=== PATIENT | female | born 1965 | race Caucasian/White ===

== ENCOUNTER 2020-10-01 14:28 | Emergency (ER) | payer MEDICAID ==
[~2020-10-01] VITALS: Ht 157.5 cm; Wt 160.0 kg
[2020-10-01] MEDS ORDERED: normal saline 1000ML IV soln IVB ONE (16:20)
[2020-10-01] MEDS ORDERED: proCHLORperazine 10 MG/2 ml inj IV ONE (16:20)
[2020-10-01] MEDS ORDERED: diphenhydrAMINE 50 mg/ml inj IV ONE (16:20)
[2020-10-01] MEDS ORDERED: proparacaine 0.5% ophthalmic drops 15ml LEFTEYE ONE (16:20)
[2020-10-01] MEDS ORDERED: timolol 0.5% ophthalmic solution 5ml bottle EACHEYE ONE (18:07)
[2020-10-01] MEDS ORDERED: latanoprost 0.005% 2.5ml ophthalmic drops EACHEYE ONE (18:10)
[2020-10-01] MEDS: latanoprost 0.005% 2.5ml ophthalmic drops EACHEYE SCH ×2 (18:10→19:12)
[2020-10-01] MEDS ORDERED: acetaZOLAMIDE IV 500mg inj IV ONE (18:10)
[2020-10-01] MEDS ORDERED: brimonidine 0.2% 5 ML ophthalmic drops EACHEYE SCH (18:10)
--- NOTE | 2020-10-01 18:24 | NUR ---
waiting for medications from pharmacy.
[2020-10-01] MEDS ORDERED: ketorolac tromethamine 15mg/ml inj. IV ONE (18:50)
[2020-10-01] MEDS: pilocarpine 2% ophthalmic drops 15ml EACHEYE SCH ×2 (20:23→20:30)
[2020-10-01] MEDS ORDERED: acetaZOLAMIDE 250mg tablet PO ONE (21:25)
[2020-10-01] MEDS ORDERED: MANNITOL 12.5 GM/50 ML IV ONE (22:05)
--- NOTE | 2020-10-01 22:16 | NUR ---
SPOKE TO PHARMACY. THEY ARE COMPOUNDING THE IV MEDICATION AND MAY TAKE ABOUT 20 MIN
[2020-10-01] MEDS ORDERED: DEXTROSE 5% IV ONE (22:25)
[2020-10-01] MEDS ORDERED: MANNITOL IV ONE (22:25)
[2020-10-01] MEDS ORDERED: WATER IV ONE (22:25)
[2020-10-02 04:28] VITALS: BP 126/84
== END 2020-10-02 04:30 | disposition home or self-care (01) ==
LOC: ER 14:29
DX: H40.212 Acute angle-closure glaucoma, left eye (principal); G43.909 Migraine, unspecified, not intractable, without status migrainosus
CPT/HCPCS: 96361; 96365; 96375; 99285; J0780; J1120; J1200; J1885; J2150; J7030; J7060

== ENCOUNTER 2021-01-16 12:17 | Emergency (ER) | payer MEDICAID ==
[~2021-01-16] VITALS: Ht 160 cm; Wt 145.4 kg
[2021-01-16 12:24] VITALS: BP 165/94
[2021-01-16] MEDS ORDERED: ketorolac trometh inj. 60 MG/2 ML VIAL IM ONE (13:10)
[2021-01-16] MEDS ORDERED: HYDROcodone/acetaminophen 10/325mg tab PO ONE (13:10)
[2021-01-16] MEDS ORDERED: HYDR-3972 PO (13:20)
== END 2021-01-16 13:36 | disposition home or self-care (01) ==
LOC: ER 12:18
DX: S89.91XA Unspecified injury of right lower leg, initial encounter (principal); M25.561 Pain in right knee; E78.00 Pure hypercholesterolemia, unspecified; I10 Essential (primary) hypertension; E11.9 Type 2 diabetes mellitus without complications; E03.9 Hypothyroidism, unspecified; Z98.890 Other specified postprocedural states; Z79.899 Other long term (current) drug therapy; W19.XXXA Unspecified fall, initial encounter; Y93.89 Activity, other specified; Y92.89 Other specified places as the place of occurrence of the external cause; Y99.8 Other external cause status
CPT/HCPCS: 73564; 96372; 99283; J1885

== ENCOUNTER 2021-03-03 21:18 | Emergency (ER) | payer MEDICAID ==
[~2021-03-03] VITALS: Ht 162.6 cm; Wt 143.3 kg
--- NOTE | 2021-03-03 21:42 | NUR ---
MARTHA Copeland at bedside.
[2021-03-03] MEDS ORDERED: CefTRIAXone/D5W-Rocephin 1gm 50 ML IV ONE (21:50)
[2021-03-03] MEDS ORDERED: vancomycin/NS 1 GM ADD-VANTAGE 250 ML IV ONE (22:05)
[2021-03-03] MEDS ORDERED: normal saline 1000ML IV soln IVB ONE (22:05)
[2021-03-03 22:06] LABS: BASOPHILS % (AUTO) 0.4 % (0-1); EOSINOPHILS # (AUTO) 0.2 X10'3 (0-0.9); EOSINOPHILS % (AUTO) 2.2 % (0-6); HEMATOCRIT 37.1 % (35.0-45.0); HEMOGLOBIN 12.5 g/dl (12.0-16.0); LYMPHOCYTES # (AUTO) 1.8 X10'3 (1.1-4.8); LYMPHOCYTES % (AUTO) 18.2 % (21-51); MEAN CORPUSCULAR HEMOGLOBIN 31.4 PG (27.0-31.0); MEAN CORPUSCULAR HGB CONC 33.8 g/dL (33.0-36.5); MEAN CORPUSCULAR VOLUME 92.9 FL (78-98); MONOCYTES % (AUTO) 9.6 % (2-12); NEUTROPHILS # (AUTO) 6.9 X10'3 (1.8-7.7); NEUTROPHILS % (AUTO) 69.6 % (42-75); PLATELET COUNT 259 X10'3 (140-440); RED BLOOD COUNT 3.99 X10'6 (4.20-5.60); RED CELL DISTRIBUTION WIDTH 13.4 % (11.5-14.5)
[2021-03-03 22:14] LABS: ALANINE AMINOTRANSFERASE 21 U/L (12-78); ALBUMIN 3.1 G/DL (3.4-5.0); ALBUMIN/GLOBULIN RATIO 0.8 (1.1-1.5); ALKALINE PHOSPHATASE 104 IU/L (46-116); ANION GAP 11 (8-16); ASPARTATE AMINO TRANSFERASE 17 U/L (10-37); BILIRUBIN,TOTAL 0.4 MG/DL (0.1-1.0); BLOOD UREA NITROGEN 12 MG/DL (7-18); BUN/CREATININE RATIO 10.7 (6.6-38.0); CALCIUM 8.8 MG/DL (8.5-10.1); CHLORIDE 101 MMOL/L (99-107); CREATININE 1.12 MG/DL (0.40-0.90); GLUCOSE 188 MG/DL (70-104); POTASSIUM 3.9 MMOL/L (3.5-5.1); SODIUM 136 MMOL/L (135-145); TOTAL PROTEIN 7.2 G/DL (6.4-8.2); eGFR 50 ML/MIN
[2021-03-03] MEDS ORDERED: SULF1TAB49 PO (22:19)
[2021-03-03] MEDS ORDERED: CEPH250T PO (22:19)
[2021-03-03 22:43] VITALS: BP 126/70
== END 2021-03-04 | disposition home or self-care (01) ==
LOC: ER 21:19
DX: L03.115 Cellulitis of right lower limb (principal); E78.00 Pure hypercholesterolemia, unspecified; I10 Essential (primary) hypertension; E11.9 Type 2 diabetes mellitus without complications; E03.9 Hypothyroidism, unspecified
CPT/HCPCS: 36415; 80053; 85025; 96365; 99284; J3370; J7030

== ENCOUNTER 2021-07-27 12:16 | Emergency (ER) | payer MEDICAID ==
[~2021-07-27] VITALS: Ht 160 cm; Wt 136.4 kg
[2021-07-27] MEDS ORDERED: LIDOcaine 1% W/epiNEPHrine 1:200,000 10ml vial IJ ONE (12:20)
[2021-07-27 12:26] VITALS: BP 189/77
[2021-07-27] MEDS ORDERED: LIDOcaine/epinephrine/tetracaine TOPICAL sol 3 ML syringe TOP ONE (12:40)
[2021-07-27] MEDS ORDERED: CEPH-585 PO (13:06)
[2021-07-27] MEDS ORDERED: HYDR-3972 PO (14:31)
== END 2021-07-27 14:53 | disposition home or self-care (01) ==
LOC: ER 12:16
DX: S01.511A Laceration without foreign body of lip, initial encounter (principal); E78.00 Pure hypercholesterolemia, unspecified; I10 Essential (primary) hypertension; E11.9 Type 2 diabetes mellitus without complications; E03.9 Hypothyroidism, unspecified; Z98.890 Other specified postprocedural states; Z79.2 Long term (current) use of antibiotics; W01.0XXA Fall on same level from slipping, tripping and stumbling without subsequent striking against object, initial encounter; Y93.89 Activity, other specified; Y92.89 Other specified places as the place of occurrence of the external cause; Y99.8 Other external cause status
CPT/HCPCS: 40650; 99283

== ENCOUNTER 2022-12-26 15:52 | Emergency (ER) | payer MEDICAID ==
[~2022-12-26] VITALS: Ht 157.5 cm; Wt 145.4 kg
[2022-12-26 16:03] VITALS: BP 124/80
[2022-12-26] MEDS ORDERED: ondansetron/PF 4mg/2ml inj IV ONE (16:10)
[2022-12-26] MEDS ORDERED: pantoprazole 40 MG vial IV ONE (16:10)
[2022-12-26] MEDS ORDERED: ketorolac trometh. 30mg/ml inj. IV ONE (16:10)
[2022-12-26] MEDS ORDERED: normal saline 1000ML IV soln IVB ONE (16:10)
[2022-12-26 16:38] LABS: BASOPHILS # (AUTO) 0.1 X10'3 (0-0.2); BASOPHILS % (AUTO) 0.3 % (0-1); EOSINOPHILS # (AUTO) 0.5 X10'3 (0-0.9); EOSINOPHILS % (AUTO) 2.4 % (0-6); HEMATOCRIT 41.2 % (35.0-45.0); HEMOGLOBIN 13.9 g/dl (12.0-16.0); LYMPHOCYTES # (AUTO) 1.5 X10'3 (1.1-4.8); LYMPHOCYTES % (AUTO) 6.7 % (21-51); MEAN CORPUSCULAR HEMOGLOBIN 30.9 PG (27.0-31.0); MEAN CORPUSCULAR HGB CONC 33.8 g/dL (33.0-36.5); MEAN CORPUSCULAR VOLUME 91.6 FL (78-98); MEAN PLATELET VOLUME 8.4 FL (7.4-10.4); MONOCYTES # (AUTO) 1.4 X10'3 (0-0.9); MONOCYTES % (AUTO) 6.2 % (2-12); NEUTROPHILS % (AUTO) 84.4 % (42-75); PLATELET COUNT 353 X10'3 (140-440); RED CELL DISTRIBUTION WIDTH 13.9 % (11.5-14.5); WHITE BLOOD COUNT 22.5 X10'3 (4.5-11.0)
[2022-12-26 17:03] LABS: ALANINE AMINOTRANSFERASE 233 U/L (12-78); ALBUMIN 3.3 G/DL (3.4-5.0); ALBUMIN/GLOBULIN RATIO 0.8 (1.1-1.5); ALKALINE PHOSPHATASE 205 IU/L (46-116); ANION GAP 11 (8-16); ASPARTATE AMINO TRANSFERASE 71 U/L (10-37); BLOOD UREA NITROGEN 11 MG/DL (7-18); BUN/CREATININE RATIO 11.2 (10.0-20.0); CALCIUM 8.4 MG/DL (8.5-10.1); CHLORIDE 98 MMOL/L (99-107); CREATININE 0.98 MG/DL (0.40-0.90); GLUCOSE 190 MG/DL (70-104); LIPASE 335 U/L (73-393); MAGNESIUM 1.4 MG/DL (1.5-2.4); SODIUM 136 MMOL/L (135-145); TOTAL PROTEIN 7.5 G/DL (6.4-8.2); eGFR 58 ML/MIN
[2022-12-26 17:08] LABS: POTASSIUM 2.9 MMOL/L (3.5-5.1)
[2022-12-26] MEDS ORDERED: POTASSIUM BICARB 20meq eff tab 20 MEQ TABLET.EFF PO STA (17:28)
[2022-12-26] MEDS ORDERED: magnesium 2GM in 50ml NS 50 ML IV ONE (17:30)
[2022-12-26] MEDS ORDERED: Potassium Cl inj 20 MEQ in normal saline 250ml IV soln 250 ML IV ONE (17:30)
[2022-12-26 20:12] LABS: URINE HCG NEGATIVE (NEG)
[2022-12-26 20:13] LABS: CLARITY,URINE TURBID (Clear); GLUCOSE, URINE NEGATIVE (Neg); KETONES,URINE TRACE mg/dl (Neg); LEUKOCYTE ESTERASE ,URINE NEGATIVE (Neg); NITRITES, URINE POSITIVE (Neg); OCCULT BLOOD,URINE NEGATIVE (Neg); PROTEIN,URINE 100 mg/dl (Neg)
[2022-12-26 20:18] LABS: UA COLLECTION TYPE CLN CATCH MIDSTREAM
[2022-12-26 20:20] LABS: COLOR,URINE DARK YELLOW (Yellow); SQUAMOUS EPITHELIAL CELL,UR MANY /LPF (FEW)
[2022-12-26 20:21] LABS: BACTERIA,URINE 3+ /HPF (Neg)
[2022-12-26] MEDS ORDERED: CefTRIAXone/D5W-Rocephin 1gm 50 ML IV ONE (20:40)
[2022-12-26] MEDS ORDERED: normal saline 1000ml 1,000 ML IV ONE (21:05)
[2022-12-26] MEDS ORDERED: pantoprazole 40MG/NS 100ML BAG 100 ML IV ONE (22:15)
[2022-12-26] MEDS ORDERED: AMOX-117 PO (23:23)
[2022-12-26] MEDS ORDERED: ONDA4TAB12 PO (23:23)
[2022-12-26] MEDS ORDERED: HYDR-3965 PO (23:23)
[2022-12-26] MEDS ORDERED: ondansetron 4mg rapidly disintigrating tab PO ONE (23:25)
[2022-12-26] MEDS ORDERED: HYDROcodone/acetaminophen 5mg/325mg tablet PO ONE (23:25)
== END 2022-12-27 01:26 | disposition home or self-care (01) ==
LOC: ER 15:52
DX: N10 Acute pyelonephritis (principal); I10 Essential (primary) hypertension; E11.9 Type 2 diabetes mellitus without complications; E78.00 Pure hypercholesterolemia, unspecified; E03.9 Hypothyroidism, unspecified
CPT/HCPCS: 36415; 80053; 81001; 81025; 83605; 83690; 83735; 84145; 85025; 87040; 96365; 96366; 96368; 96375; 99284; C9113; J0696; J1885; J2405; J3475; J3480; J7030; J7050

== ENCOUNTER 2024-04-30 13:33 | Inpatient (IN) | payer MEDICAID ==
[~2024-04-30] VITALS: Ht 160 cm; Wt 148.0 kg
[~2024-04-30 13:33] MED LIST: ONDA-243 PO
[2024-04-30] MEDS: normal saline 1000ML IV soln IV ONE (15:33)
[2024-04-30] MEDS: piperacillin/tazo 3.375gm/50ml 50 ML IV ONE (15:34)
[2024-04-30 15:49] LABS: BASOPHILS # (AUTO) 0.1 X10'3 (0-0.2); BASOPHILS % (AUTO) 0.9 % (0-1); EOSINOPHILS # (AUTO) 0.4 X10'3 (0-0.9); EOSINOPHILS % (AUTO) 3.1 % (0-6); HEMATOCRIT 43.9 % (35.0-45.0); HEMOGLOBIN 14.3 g/dl (12.0-16.0); LYMPHOCYTES % (AUTO) 17.7 % (21-51); MEAN CORPUSCULAR HEMOGLOBIN 29.9 PG (27.0-31.0); MEAN CORPUSCULAR HGB CONC 32.7 g/dL (33.0-36.5); MEAN CORPUSCULAR VOLUME 91.4 FL (78-98); MEAN PLATELET VOLUME 8.4 FL (7.4-10.4); MONOCYTES # (AUTO) 0.9 X10'3 (0-0.9); MONOCYTES % (AUTO) 8.2 % (2-12); NEUTROPHILS % (AUTO) 70.1 % (42-75); PLATELET COUNT 412 X10'3 (140-440); RED CELL DISTRIBUTION WIDTH 13.5 % (11.5-14.5); WHITE BLOOD COUNT 11.4 X10'3 (4.5-11.0)
[2024-04-30 16:01] LABS: ALANINE AMINOTRANSFERASE 60 U/L (12-78); ALBUMIN 3.9 G/DL (3.4-5.0); ALBUMIN/GLOBULIN RATIO 0.9 (1.1-1.5); ALKALINE PHOSPHATASE 136 IU/L (46-116); ANION GAP 13 (8-16); ASPARTATE AMINO TRANSFERASE 50 U/L (10-37); BILIRUBIN,TOTAL 0.6 MG/DL (0.1-1.0); BLOOD UREA NITROGEN 16 MG/DL (7-18); BUN/CREATININE RATIO 15.7 (10.0-20.0); C-REACTIVE PROTEIN 1.46 MG/DL (0.0-0.5); CALCIUM 10.1 MG/DL (8.5-10.1); CHLORIDE 99 MMOL/L (99-107); CREATININE 1.02 MG/DL (0.40-0.90); GLUCOSE 222 MG/DL (70-104); POTASSIUM 4.5 MMOL/L (3.5-5.1); SODIUM 135 MMOL/L (135-145); TOTAL CARBON DIOXIDE 23.4 MMOL/L (24-32); TOTAL PROTEIN 8.2 G/DL (6.4-8.2); eCRCL 49 ML/MIN; eGFR 55 ML/MIN
[2024-04-30] MEDS: normal saline 1000ml 1,000 ML IV ONE (16:50)
[2024-04-30] MEDS ORDERED: CALC-723 PO (16:58)
[2024-04-30] MEDS ORDERED: NORT25CA PO (17:00)
[2024-04-30] MEDS ORDERED: LEVO125T8 PO (17:00)
[2024-04-30] MEDS ORDERED: METF-1203 PO (17:00)
[2024-04-30] MEDS ORDERED: LOSA25TA41 PO (17:00)
[2024-04-30] MEDS ORDERED: ESCI-8 PO (17:00)
[2024-04-30] MEDS ORDERED: potassium Cl 40MEQ/1/2NS 520ml 520 ML IV PRN (18:45)
[2024-04-30] MEDS ORDERED: ondansetron/PF 4mg/2ml inj IV PRN (18:45)
[2024-04-30] MEDS ORDERED: mag hydrox/Alum hydrox/simeth 30ml oral suspension PO PRN (18:45)
[2024-04-30] MEDS ORDERED: magnesium hydroxide 30ml (MOM) UD suspension PO PRN (18:45)
[2024-04-30] MEDS ORDERED: magnesium sulf-water 4G/100mL 100 ML IV PRN (18:45)
[2024-04-30] MEDS ORDERED: potassium Cl 20 mEq SR tablet PO PRN ×2 (18:45)
[2024-04-30] MEDS: cefazolin 2gm/D5W 100mL 100 ML IV SCH (19:53)
[2024-04-30] MEDS: normal saline 1000ml 1,000 ML IV SCH (19:53)
[2024-04-30 19:57] LABS: BILIRUBIN,URINE NEGATIVE (Neg); CLARITY,URINE CLEAR (Clear); COLOR,URINE YELLOW (Yellow); GLUCOSE, URINE NEGATIVE (Neg); KETONES,URINE NEGATIVE (Neg); LEUKOCYTE ESTERASE ,URINE NEGATIVE (Neg); NITRITES, URINE NEGATIVE (Neg); OCCULT BLOOD,URINE NEGATIVE (Neg); PROTEIN,URINE NEGATIVE (Neg); UA COLLECTION TYPE CLN CATCH MIDSTREAM; UROBILINOGEN,URINE 0.2 E.U/dL (0.2-1.0)
[2024-04-30] MEDS: K and/or MAG REPLACEMENT MC SCH (20:00)
[2024-04-30] MEDS: docusate sod 100mg capsule PO SCH (20:00)
[2024-04-30] MEDS: nortriptyline 25mg capsule PO SCH (20:36)
[2024-04-30] MEDS: heparin, porcine 5000 units/ml vial SQ SCH (20:37)
[2024-04-30 21:15] VITALS: BP 156/78; PULSE 89; RESP 18; TEMP 98.9; O2SAT 94
[2024-04-30 21:20] VITALS: RESP 18; O2SAT 94
[2024-04-30 22:15] VITALS: BP 129/62; PULSE 67; RESP 18; TEMP 97.9; O2SAT 96
[2024-04-30] MEDS ORDERED: dextrose 50%-water 50ml dispensing syringe IV PRN ×2 (22:30)
[2024-04-30] MEDS ORDERED: glucagon, human recombinant 1mg kit SUBCUT PRN (22:30)
[2024-04-30] MEDS ORDERED: DEXTROSE 15 GM of carb/4 tabs (each vial/BOTTLE has 4 tablets) PO PRN ×2 (22:30)
[2024-04-30] MEDS: INSULIN LISPRO 100 UNIT/ML INSULN.PEN MULTI-DOSE SQ SCH (23:13)
[2024-04-30] MEDS: insulin glargine (Lantus) pen - multi-dose SQ SCH (23:15)
[2024-05-01] MEDS: acetaminophen 325mg tablet PO PRN (05:26)
[2024-05-01 06:00] VITALS: BP 146/90; PULSE 81; RESP 16; TEMP 98.1; O2SAT 95
[2024-05-01 06:16] LABS: ALANINE AMINOTRANSFERASE 55 U/L (12-78); ALBUMIN 3.4 G/DL (3.4-5.0); ALBUMIN/GLOBULIN RATIO 0.9 (1.1-1.5); ALKALINE PHOSPHATASE 114 IU/L (46-116); ANION GAP 10 (8-16); ASPARTATE AMINO TRANSFERASE 43 U/L (10-37); BILIRUBIN,TOTAL 0.4 MG/DL (0.1-1.0); BLOOD UREA NITROGEN 13 MG/DL (7-18); BUN/CREATININE RATIO 14.9 (10.0-20.0); CALCIUM 8.9 MG/DL (8.5-10.1); CHLORIDE 104 MMOL/L (99-107); CHOL/HDL RATIO 3.7 (0.00-4.99); CHOLESTEROL 201 MG/DL (0-200); CREATININE 0.87 MG/DL (0.40-0.90); GLUCOSE 120 MG/DL (70-104); HDL CHOLESTEROL 55 MG/DL (35-60); LDL CHOLESTEROL 115 MG/DL (50-100); MAGNESIUM 1.4 MG/DL (1.5-2.4); POTASSIUM 3.7 MMOL/L (3.5-5.1); SODIUM 140 MMOL/L (135-145); TOTAL CARBON DIOXIDE 26.1 MMOL/L (24-32); TOTAL PROTEIN 7.4 G/DL (6.4-8.2); TRIGLYCERIDES 152 MG/DL (20-135); eCRCL 57 ML/MIN; eGFR 66 ML/MIN
[2024-05-01 06:29] LABS: BASOPHILS # (AUTO) 0.1 X10'3 (0-0.2); BASOPHILS % (AUTO) 0.6 % (0-1); EOSINOPHILS # (AUTO) 0.4 X10'3 (0-0.9); EOSINOPHILS % (AUTO) 3.6 % (0-6); HEMATOCRIT 41.9 % (35.0-45.0); HEMOGLOBIN 13.6 g/dl (12.0-16.0); LYMPHOCYTES # (AUTO) 3.6 X10'3 (1.1-4.8); LYMPHOCYTES % (AUTO) 29.5 % (21-51); MEAN CORPUSCULAR HEMOGLOBIN 29.7 PG (27.0-31.0); MEAN CORPUSCULAR HGB CONC 32.4 g/dL (33.0-36.5); MEAN CORPUSCULAR VOLUME 91.7 FL (78-98); MEAN PLATELET VOLUME 8.7 FL (7.4-10.4); MONOCYTES # (AUTO) 0.9 X10'3 (0-0.9); MONOCYTES % (AUTO) 7.7 % (2-12); NEUTROPHILS # (AUTO) 7.1 X10'3 (1.8-7.7); NEUTROPHILS % (AUTO) 58.6 % (42-75); PLATELET COUNT 350 X10'3 (140-440); RED BLOOD COUNT 4.57 X10'6 (4.20-5.60); RED CELL DISTRIBUTION WIDTH 13.4 % (11.5-14.5)
[2024-05-01] MEDS ORDERED: levoTHYROXINE 125mcg tablet PO SCH (08:00)
[2024-05-01 08:15] VITALS: RESP 16; O2SAT 97
[2024-05-01] MEDS: ESCITALOPRAM 10 mg tablet 10 MG TABLET PO SCH (08:43)
[2024-05-01] MEDS: losartan 25mg tablet PO SCH (08:44)
[2024-05-01] MEDS: levoTHYROXINE 125mcg tablet PO SCH (08:56)
[2024-05-01] MEDS: magnesium Cl slow-release 64mg tablet PO PRN (09:27)
[2024-05-01] MEDS: INSULIN LISPRO 100 UNIT/ML INSULN.PEN MULTI-DOSE SQ SCH (09:30)
[2024-05-01 10:00] VITALS: BP 174/70; PULSE 66; RESP 18; TEMP 97.2; O2SAT 94
[2024-05-01 18:00] VITALS: BP 158/76; PULSE 75; RESP 16; TEMP 98.3; O2SAT 96
[2024-05-01 20:00] VITALS: RESP 16; O2SAT 96
[2024-05-01 22:00] VITALS: BP 143/57; PULSE 65; RESP 20; TEMP 98.6; O2SAT 97
[2024-05-02 05:58] LABS: BASOPHILS % (AUTO) 0.6 % (0-1); EOSINOPHILS # (AUTO) 0.4 X10'3 (0-0.9); EOSINOPHILS % (AUTO) 6.7 % (0-6); HEMATOCRIT 34.5 % (35.0-45.0); HEMOGLOBIN 11.5 g/dl (12.0-16.0); LYMPHOCYTES # (AUTO) 2.1 X10'3 (1.1-4.8); LYMPHOCYTES % (AUTO) 32.5 % (21-51); MEAN CORPUSCULAR HEMOGLOBIN 30.3 PG (27.0-31.0); MEAN CORPUSCULAR HGB CONC 33.2 g/dL (33.0-36.5); MEAN CORPUSCULAR VOLUME 91.1 FL (78-98); MEAN PLATELET VOLUME 8.1 FL (7.4-10.4); MONOCYTES # (AUTO) 0.6 X10'3 (0-0.9); MONOCYTES % (AUTO) 8.8 % (2-12); NEUTROPHILS # (AUTO) 3.4 X10'3 (1.8-7.7); NEUTROPHILS % (AUTO) 51.4 % (42-75); PLATELET COUNT 251 X10'3 (140-440); RED BLOOD COUNT 3.79 X10'6 (4.20-5.60); RED CELL DISTRIBUTION WIDTH 13.3 % (11.5-14.5); WHITE BLOOD COUNT 6.6 X10'3 (4.5-11.0)
[2024-05-02 06:00] VITALS: BP 146/57; PULSE 65; RESP 18; TEMP 98.4; O2SAT 98
[2024-05-02 06:03] LABS: ALANINE AMINOTRANSFERASE 41 U/L (12-78); ALBUMIN 2.7 G/DL (3.4-5.0); ALBUMIN/GLOBULIN RATIO 0.8 (1.1-1.5); ALKALINE PHOSPHATASE 93 IU/L (46-116); ANION GAP 4 (8-16); ASPARTATE AMINO TRANSFERASE 48 U/L (10-37); BILIRUBIN,TOTAL 0.3 MG/DL (0.1-1.0); BLOOD UREA NITROGEN 8 MG/DL (7-18); BUN/CREATININE RATIO 12.3 (10.0-20.0); CALCIUM 8.4 MG/DL (8.5-10.1); CHLORIDE 109 MMOL/L (99-107); CREATININE 0.65 MG/DL (0.40-0.90); GLUCOSE 140 MG/DL (70-104); MAGNESIUM 1.3 MG/DL (1.5-2.4); POTASSIUM 3.6 MMOL/L (3.5-5.1); SODIUM 140 MMOL/L (135-145); TOTAL CARBON DIOXIDE 26.8 MMOL/L (24-32); eCRCL 76 ML/MIN; eGFR > 90 ML/MIN
[2024-05-02] MEDS: magnesium sulf-water 2g/50mL 50 ML IV PRN (07:57)
[2024-05-02 08:30] VITALS: RESP 18; O2SAT 97
[2024-05-02 10:00] VITALS: BP 143/75; PULSE 70; RESP 16; TEMP 98; O2SAT 94
[2024-05-02] MEDS ORDERED: CEPH250T PO (12:58)
== END 2024-05-02 14:20 | disposition home or self-care (01) | DRG 383 ==
LOC: ER 13:33 → UNDOADMIN 17:37 → ED HOLD 17:37 → SUR 3N 21:10 → ED HOLD 21:10 → UNDODISIN 05-02 14:20
PROVIDERS: ADMIT Internal Medicine; ATTEND Internal Medicine
DX: L03.116 Cellulitis of left lower limb (principal); E87.20 Acidosis, unspecified; E11.42 Type 2 diabetes mellitus with diabetic polyneuropathy; I10 Essential (primary) hypertension; E03.9 Hypothyroidism, unspecified; E78.00 Pure hypercholesterolemia, unspecified; F32.A Depression, unspecified; E83.42 Hypomagnesemia; G47.33 Obstructive sleep apnea (adult) (pediatric); E66.9 Obesity, unspecified; Z98.84 Bariatric surgery status; Z68.43 Body mass index [BMI] 50.0-59.9, adult
CPT/HCPCS: 36415; 71045; 73630; 80053; 80061; 81003; 82948; 83036; 83605; 83735; 84145; 85025; 85651; 86140; 87040; 87081; 93005; 96365; 96375; 99285; G0378; J0690; J1644; J1815; J2543; J7030